=== PATIENT | female | born 1985 | race African-American/Black ===

== ENCOUNTER 2017-09-21 | Emergency (ER) | payer SELFPAY ==
--- NOTE | 2017-09-21 12:37 | ER Document Report ---
ED General - General Chief Complaint: Rash Stated Complaint: POSSIBLE RASH Time Seen by Provider: 09/21/17 12:30 Mode of Arrival: Ambulatory Information source: Patient Notes: Patient reports 2 days of a burning sensation in the right lateral chest and her right breast. She has noticed a rash as well. She has had some headache and flulike symptoms as well. Symptoms been constant and moderate. It is worse if touched and better if left alone. The pain does radiate from her back across the right lateral part of her chest. No vomiting or diarrhea. TRAVEL OUTSIDE OF THE [place] IN LAST 30 DAYS: No - Related Data Allergies/Adverse Reactions: No Known Allergies Allergy (Verified 09/21/17 11:14) Past Medical History - General Information source: Patient - Social History Smoking Status: Current Some Day Smoker Chew tobacco use (# tins/day): No Frequency of alcohol use: None Drug Abuse: None Family History: Reviewed & Not Pertinent Patient has suicidal ideation: No Patient has homicidal ideation: No Renal/ Medical History: Denies: Hx Peritoneal Dialysis - Immunizations Hx Diphtheria, Pertussis, Tetanus Vaccination: No Review of Systems - Review of Systems Constitutional: Malaise. denies: Chills, Fever Cardiovascular: Chest pain. denies: Palpitations Respiratory: denies: Cough, Short of breath Physical Exam - Vital signs Vitals: Temp Pulse Resp BP Pulse Ox 98.5 F 90 18 118/69 99 09/21/17 11:33 09/21/17 11:33 09/21/17 11:33 09/21/17 11:33 09/21/17 11:33 Interpretation: Normal - General General appearance: Appears well, Alert - HEENT Head: Normocephalic, Atraumatic Eyes: Normal Pupils: PERRL - Respiratory Respiratory status: No respiratory distress Chest status: Nontender Breath sounds: Normal Chest palpation: Normal - Cardiovascular Rhythm: Regular Heart sounds: Normal auscultation Murmur: No - Abdominal Inspection: Normal Distension: No distension Bowel sounds: Normal Tenderness: Nontender Organomegaly: No organomegaly - Back Back: Normal, Nontender - Extremities General upper extremity: Normal inspection, Nontender, Normal color, Normal ROM , Normal temperature General lower extremity: Normal inspection, Nontender, Normal color, Normal ROM , Normal temperature, Normal weight bearing. No: Sonja's sign - Neurological Neuro grossly intact: Yes Cognition: Normal Orientation: AAOx4 [place] Coma Scale Eye Opening: Spontaneous [place] Coma Scale Verbal: Oriented [place] Coma Scale Motor: Obeys Commands [place] Coma Scale Total: 15 Speech: Normal Motor strength normal: LUE, RUE, LLE, RLE Sensory: Normal - Psychological Associated symptoms: Normal affect, Normal mood - Skin Skin Temperature: Warm Skin Moisture: Dry Skin Color: Other - Patient has a tender erythematous vesicular rash in a dermatomal distribution. Is approximately an dermatome for on the right side. It spreads from her back to the lateral part of her breast. The vesicles are coalesced. Rashes consistent with herpes zoster. Course - Vital Signs Vital signs: Temp Pulse Resp BP Pulse Ox 98.5 F 90 18 118/69 99 09/21/17 11:33 09/21/17 11:33 09/21/17 11:33 09/21/17 11:33 09/21/17 11:33 Discharge - Discharge Clinical Impression: Herpes zoster Qualifiers: Herpes zoster complications: without complications Qualified Code(s): B02.9 - Zoster without complications Condition: Stable Disposition: HOME, SELF-CARE Instructions: Shingles ([facility]) Prescriptions: Famciclovir [Famvir] 500 mg PO TID 7 Days #21 tablet Hydrocodone/Acetaminophen [[place] 5-325 mg Tablet] 1 - 2 tab PO Q6 PRN 6 Days # 18 tab PRN Reason: Forms: Return to Work
== END 2017-09-21 13:03 | disposition home or self-care (01) ==
CPT/HCPCS: 99282

== ENCOUNTER 2018-03-05 07:36 | Emergency (ER) | payer SELFPAY ==
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
[2018-03-05] MEDS ORDERED: LIDOCAINE 1% INJ-PF (10 MG/ML) 30 ML SDV INFIL ONE (08:09)
[2018-03-05] MEDS ORDERED: AZITHROMYCIN 250 MG TABLET PO ONE (08:09)
[2018-03-05] MEDS ORDERED: CEFTRIAXONE INJ 250 MG VIAL IM ONE (08:09)
[2018-03-05 08:24] LABS: APPEARANCE,URINE SLIGHTLY-CLOUDY; BILIRUBIN,URINE NEGATIVE (NEGATIVE); GLUCOSE, URINE NEGATIVE (NEGATIVE); KETONES,URINE TRACE mg/dL (NEGATIVE); LEUKOCYTE ESTERASE,URINE LARGE (NEGATIVE); NITRITE,URINE NEGATIVE (NEGATIVE); PROTEIN,URINE 30 mg/dL (NEGATIVE); URINE SPECIFIC GRAVITY 1.032
[2018-03-05 08:26] LABS: COLOR,URINE YELLOW
[2018-03-05 08:46] LABS: BACTERIA (WET MOUNT) 3+ BACTERIA SEEN; T.VAGINALIS (WET MOUNT) TRICHOMONAS SEEN; WBCS (WET MOUNT) 3+ WBCS SEEN; YEAST (WET MOUNT) NO YEAST SEEN
[2018-03-05 09:00] VITALS: BP 114/71
[2018-03-05 09:47] LABS: CHLAM PCR NOT DETECTED (NOT DETECT); GON PCR NOT DETECTED (NOT DETECT)
== END 2018-03-05 09:15 | disposition home or self-care (01) ==
LOC: ER 07:36
DX: N76.0 Acute vaginitis (principal); B96.89 Other specified bacterial agents as the cause of diseases classified elsewhere; A59.01 Trichomonal vulvovaginitis; R10.2 Pelvic and perineal pain
CPT/HCPCS: 99284; 96372; 87086; 87210; 81025; 81001; 87491; 87591; J3490; J0696

== ENCOUNTER → 2018-09-07 | Outpatient (CLI) | payer MEDICAID ==
--- NOTE | 2018-09-07 15:04 | RADIOLOGY REPORT (SQ) ---
EXAM DESCRIPTION: U/S [id number] TRNABD 1GES W/ODOP COMPLETED DATE/TIME: 09/07/2018 2:45 pm REASON FOR STUDY: Z34.81 ENCOUNTER FOR SUPRVSN OF NORMAL , FIRST TRIMESTER Z34.81 ENCOUNTE R FOR SUPRVSN OF NORMAL , FIRST TRIM COMPARISON: None. TECHNIQUE: Transabdominal static and realtime grayscale images acquired of the pelvis. Additional se lected spectral and color Doppler images recorded. All images stored on PACs. CG: Not available. CLINICAL DATES: CATHERINE: 04/10/2019. EGA: 9 weeks 2 days. LIMITATIONS: None. FINDINGS: FETUS: Single Living intrauterine . ULTRASOUND EGA: 8 weeks 6 days ULTRASOUND CATHERINE: 04/13/2019 EFW: Not applicable less than 20 weeks. CRL: 2.15 cm FHR: 165 beats per minute. SURVEY: No visualized anomalies. AMNIOTIC FLUID: Adequate amount. PLACENTA: Not yet developed due to early gestation. SUBCHORIONIC BLEED: Adjacent to the gestational sac, a hypoechoic fluid collection measures 4.2 x 1. 6 x 1.2 cm. SIZE OF BLEED: See above. UTERUS: No masses. No anomalies. CERVICAL LENGTH: 2.8 cm Closed. RIGHT ADNEXA: Not visualized sonographically. LEFT ADNEXA: The left ovary measures 5.0 x 3.9 x 3.6 cm. A left ovarian cyst measures 3.7 x 3.2 x 3 .7 cm and may represent a corpus luteum cyst of . Normal normal vascular flow. FREE FLUID: None. OTHER: No other significant finding. IMPRESSION: LIVING INTRAUTERINE . EGA: 8 weeks 6 days. Subchorionic bleed see above discussion. Trimester of : First - 0 to 13 weeks. TECHNICAL DOCUMENTATION: JOB ID: [id number] [employer]- All Rights Reserved rev Reading location - IP/workstation name: [email or web address]
== END ==
LOC: RAD 14:06
PROVIDERS: ATTEND Midwife
DX: Z34.81 Encounter for supervision of other normal pregnancy, first trimester (principal)
CPT/HCPCS: 76801

== ENCOUNTER 2019-03-28 10:42 | Outpatient (CLI) | payer MEDICAID | END 2019-03-28 11:21 | disposition home or self-care (01) | LOC: LC 10:42 | PROVIDERS: ATTEND Student in an Organized Health Care Education/Training Program | PROC: 4A1HXCZ Monitoring of Products of Conception, Cardiac Rate, External Approach (ICD-10-PCS; principal; 2019-03-28) | DX: O47.1 False labor at or after 37 completed weeks of gestation (principal); O09.523 Supervision of elderly multigravida, third trimester; Z3A.38 38 weeks gestation of pregnancy | CPT/HCPCS: 59025 ==

== ENCOUNTER 2019-04-07 10:53 | Outpatient (CLI) | payer MEDICAID ==
--- NOTE | 2019-04-07 12:02 | Non Stress Test Report ---
Non Stress Test Datetime Report Generated by CPN: 04/07/2019 12:02 DEMOGRAPHIC Test Number: 2 EGA NST: 39.4 INDICATION Indication for Study: Ordered by Provider Indication for Study: Other - Please document "Reason for NST Other" in box below. Indication for Study (NST) Other: questionable decels in office Indication for Study (NST) Other: AMA MONITORING Monitor Explained: Monitor Explained; Test Explained; Patient Verbalized Understanding Monitor Explained: Monitor Explained; Test Explained; Patient Verbalized Understanding Time on Monitor: 04/07/2019 11:05 Time on Monitor: 03/28/2019 10:58 Time off Monitor: 04/07/2019 11:57 Time off Monitor: 03/28/2019 11:18 NST Duration: 52 NST Duration: 20 NST INTERVENTIONS NST Interventions: PO Hydration NST Interventions: None Physician Notified NST: J SANTANA, CNM Physician Notified NST: J Santana CNM BABY A: [id number] BABY A Movement : Present Movement : Absent Contraction Frequency : NONE Contraction Frequency : none FHR Baseline : 130 FHR Baseline : 135 Accelerations : 15X15 Accelerations : 15X15 Decelerations : None Decelerations : None Variability : Moderate 6-25bpm Variability : Moderate 6-25bpm NST Review: Meets Criteria for Reactive NST NST Review: Meets Criteria for Reactive NST NST Review and Verified By : FREDDY HARDEN RN NST Review and Verified By : Cezar Bae RN NST Results: Reactive NST Results: Reactive NST REPORT Report Trigger: Send Report
== END 2019-04-07 11:59 | disposition home or self-care (01) ==
LOC: LC 10:53
PROVIDERS: ATTEND Obstetrics & Gynecology Gynecology
PROC: 4A1HXCZ Monitoring of Products of Conception, Cardiac Rate, External Approach (ICD-10-PCS; principal; 2019-04-07)
DX: O09.523 Supervision of elderly multigravida, third trimester (principal); Z3A.39 39 weeks gestation of pregnancy

== ENCOUNTER 2019-04-11 11:07 | Outpatient (CLI) | payer MEDICAID ==
--- NOTE | 2019-04-11 13:32 | Non Stress Test Report ---
Non Stress Test Datetime Report Generated by CPN: 04/11/2019 13:31 DEMOGRAPHIC EGA NST: 40.1 INDICATION Indication for Study: Ordered by Provider; Other - Please document "Reason for NST Other" in box below. Indication for Study (NST) Other: AMA VITAL SIGNS Temperature - NST: 98.2 Pulse - NST: 115 RESP - NST: 16 NBPSYS NST: 107 NBPDIA NST: 59 MONITORING Monitor Explained: Monitor Explained; Test Explained; Patient Verbalized Understanding Time on Monitor: 04/11/2019 11:44 Time off Monitor: 04/11/2019 13:05 NST Duration: 81 NST INTERVENTIONS NST Interventions: PO Hydration; Reposition Patient Physician Notified NST: J. Peguero, CNM reviewed strip BABY A: [id number] BABY A Movement : Present Contraction Frequency : rare FHR Baseline : 140 Accelerations : 15X15 Decelerations : None Variability : Moderate 6-25bpm NST Review: Meets Criteria for Reactive NST NST Review and Verified By : BL EBONIEND, RN NST Results: Reactive NST REPORT Report Trigger: Send Report
== END 2019-04-11 13:08 | disposition home or self-care (01) ==
LOC: LC 11:07
PROVIDERS: ATTEND Obstetrics & Gynecology
PROC: 4A1HXCZ Monitoring of Products of Conception, Cardiac Rate, External Approach (ICD-10-PCS; principal; 2019-04-11)
DX: O09.523 Supervision of elderly multigravida, third trimester (principal); O48.0 Post-term pregnancy; Z3A.40 40 weeks gestation of pregnancy
CPT/HCPCS: 59025

== ENCOUNTER 2019-04-12 04:37 | Outpatient (CLI) | payer MEDICAID ==
[2019-04-12 05:05] LABS: APPEARANCE,URINE CLOUDY; BILIRUBIN,URINE NEGATIVE (NEGATIVE); COLOR,URINE YELLOW; GLUCOSE, URINE NEGATIVE (NEGATIVE); KETONES,URINE NEGATIVE (NEGATIVE); LEUKOCYTE ESTERASE,URINE LARGE (NEGATIVE); NITRITE,URINE NEGATIVE (NEGATIVE); PROTEIN,URINE NEGATIVE (NEGATIVE); UROBILINOGEN,URINE NEGATIVE mg/dL (<2.0)
[2019-04-12 06:13] LABS: URINE AMPHETAMINES SCREEN NEGATIVE; URINE BARBITURATES SCREEN NEGATIVE; URINE BENZODIAZEPINES SCREEN NEGATIVE; URINE COCAINE SCREEN NEGATIVE; URINE MARIJUANA (THC) SCREEN NEGATIVE; URINE METHADONE SCREEN NEGATIVE; URINE PHENCYCLIDINE SCREEN NEGATIVE
== END 2019-04-12 06:00 | disposition home or self-care (01) ==
LOC: LC 04:37
PROVIDERS: ATTEND Obstetrics & Gynecology
PROC: 4A1HXCZ Monitoring of Products of Conception, Cardiac Rate, External Approach (ICD-10-PCS; principal; 2019-04-12)
DX: O36.8130 Decreased fetal movements, third trimester, not applicable or unspecified (principal); O09.523 Supervision of elderly multigravida, third trimester; O48.0 Post-term pregnancy; Z3A.40 40 weeks gestation of pregnancy
CPT/HCPCS: 59025; 80307; 81005

== ENCOUNTER 2019-04-15 11:57 | Outpatient (CLI) | payer MEDICAID ==
--- NOTE | 2019-04-15 12:04 | Non Stress Test Report ---
Non Stress Test Datetime Report Generated by CPN: 04/15/2019 12:04 DEMOGRAPHIC EGA NST: 40.2 INDICATION Indication for Study: Decreased Movement MONITORING Monitor Explained: Monitor Explained; Test Explained; Patient Verbalized Understanding Time on Monitor: 04/12/2019 04:33 Time off Monitor: 04/12/2019 05:52 NST Duration: 79 NST INTERVENTIONS NST Interventions: PO Hydration Physician Notified NST: Dr. Younger BABY A: [id number] BABY A Movement : Present Contraction Frequency : Irritability FHR Baseline : 140 Accelerations : 15X15 Decelerations : None Variability : Moderate 6-25bpm NST Review: Meets Criteria for Reactive NST NST Review and Verified By : Blossom Kaye RN NST Results: Reactive NST REPORT Report Trigger: Send Report
--- NOTE | 2019-04-15 13:30 | RADIOLOGY REPORT (SQ) ---
EXAM DESCRIPTION: U/S PROFILE W/O STRESS COMPLETED DATE/TIME: 04/15/2019 1:20 pm REASON FOR STUDY: BPP not reactive NST COMPARISON: None. TECHNIQUE: Limited powell-scale realtime and static images of the fetus to measure specified parameter s. LIMITATIONS: None. FINDINGS: HEART RATE: 150 beats per minute. LVP: 7.0 cm. BREATHING MOVEMENT: 2 points. MOVEMENT: 2 points. POSTURE AND TONE: 2 points. QUALITATIVE KATHYA: 2 points. OTHER: No other significant finding. IMPRESSION: BIOPHYSICAL PROFILE: 01/13. Trimester of : Third - 28 weeks to delivery COMMENT: BREATHING MOVEMENTS: 2 POINTS: PRESENT 0 POINTS: ABSENT MOTION: 2 POINTS: PRESENT 0 POINTS: ABSENT TONE: 2 POINTS: PRESENT 0 POINTS: ABSENT AMNIOTIC FLUID VOLUME: 2 POINTS: LARGEST POCKET GREATER THAN 2 CM DEPTH. 0 POINTS: NO POCKET OF 2 CM. TECHNICAL DOCUMENTATION: JOB ID: [id number] [employer]- All Rights Reserved Reading location - IP/workstation name: [email or web address]
--- NOTE | 2019-04-15 14:21 | Non Stress Test Report ---
Non Stress Test Datetime Report Generated by CPN: 04/15/2019 14:21 DEMOGRAPHIC EGA NST: 40.5 INDICATION Indication for Study: Other - Please document "Reason for NST Other" in box below. Indication for Study (NST) Other: AMA VITAL SIGNS Temperature - NST: 98.0 Pulse - NST: 93 RESP - NST: 16 NBPSYS NST: 112 NBPDIA NST: 65 MONITORING Monitor Explained: Monitor Explained; Test Explained; Patient Verbalized Understanding Time on Monitor: 04/15/2019 12:04 Time off Monitor: 04/15/2019 12:45 NST Duration: 41 NST INTERVENTIONS NST Interventions: PO Hydration; For Biophysical Profile Physician Notified NST: Dr. Granado and A. Devlin, CNM BABY A Movement : Present Contraction Frequency : 0 FHR Baseline : 155 Accelerations : 10X10 Decelerations : Variable Variability : Minimal - Undetectable to <=5bpm NST Review: Does Not Meet Criteria for Reactive NST NST Review: Does Not Meet Criteria for Reactive NST NST Review and Verified By : Nancy Payan RN NST Results: Non-Reactive NST REPORT Report Trigger: Send Report
== END 2019-04-15 14:05 | disposition home or self-care (01) ==
LOC: LC 11:57
PROVIDERS: ATTEND Obstetrics & Gynecology
DX: O36.8330 Maternal care for abnormalities of the fetal heart rate or rhythm, third trimester, not applicable or unspecified (principal); Z3A.40 40 weeks gestation of pregnancy
CPT/HCPCS: 59025; 76819

== ENCOUNTER 2019-04-16 14:43 | Inpatient (IN) | payer MEDICAID ==
[2019-04-16 15:35] LABS: APPEARANCE,URINE CLOUDY; BILIRUBIN,URINE NEGATIVE (NEGATIVE); COLOR,URINE AMBER; GLUCOSE, URINE NEGATIVE (NEGATIVE); KETONES,URINE NEGATIVE (NEGATIVE); LEUKOCYTE ESTERASE,URINE MODERATE (NEGATIVE); NITRITE,URINE NEGATIVE (NEGATIVE); PROTEIN,URINE 30 mg/dL (NEGATIVE); URINE SPECIFIC GRAVITY 1.023
[2019-04-16 16:01] LABS: URINE AMPHETAMINES SCREEN NEGATIVE; URINE BARBITURATES SCREEN NEGATIVE; URINE BENZODIAZEPINES SCREEN NEGATIVE; URINE COCAINE SCREEN NEGATIVE; URINE MARIJUANA (THC) SCREEN NEGATIVE; URINE METHADONE SCREEN NEGATIVE; URINE PHENCYCLIDINE SCREEN NEGATIVE
[2019-04-16] MEDS ORDERED: RINGERS SOLUTION,LACTATED 1,000 ML IV ONE (16:21)
[2019-04-16] MEDS ORDERED: RINGERS SOLUTION,LACTATED 1,000 ML IV PRN (16:21)
[2019-04-16] MEDS ORDERED: PENICILLIN G POTASSIUM 5,000,000 UNIT in DEXTROSE 5%-WATER 100 ML IV ONE (16:21)
[2019-04-16] MEDS ORDERED: PENICILLIN G-K 5 MILLION UNIT VIAL ONE ×2 (16:24→20:51)
[2019-04-16] MEDS ORDERED: OXYTOCIN/NORMAL SALINE 20 UNIT/1,000 ML RTUINJ ONE (16:37)
[2019-04-16] MEDS ORDERED: OXYTOCIN 10 UNIT/ML VIAL ONE (16:37)
[2019-04-16] MEDS ORDERED: LIDOCAINE 1% INJ-PF (10 MG/ML) 30 ML SDV ONE (16:37)
[2019-04-16] MEDS ORDERED: MISOPROSTOL 0.2 MG TABLET ONE (16:37)
[2019-04-16 16:56] LABS: ABSOLUTE EOSINOPHILS # (AUTO) 0.2 10^3/uL (0.0-0.6); ABSOLUTE LYMPHOCYTES (AUTO) 1.8 10^3/uL (0.5-4.7); ABSOLUTE NEUT (AUTO) 8.1 10^3/uL (1.7-8.2); BASOPHILS % (AUTO) 0.2 % (0-2); HEMATOCRIT 33.2 % (36.0-47.0); HEMOGLOBIN 11.1 g/dL (12.0-15.5); LYMPHOCYTES % (AUTO) 16.1 % (13-45); MEAN CORPUSCULAR HEMOGLOBIN 29.1 pg (27.0-33.4); MEAN CORPUSCULAR HGB CONC 33.3 g/dL (32.0-36.0); MEAN CORPUSCULAR VOLUME 87 fl (80-97); MONOCYTES % (AUTO) 8.8 % (3-13); PLATELET COUNT 364 10^3/uL (150-450); RED BLOOD COUNT 3.81 10^6/uL (3.72-5.28); RED CELL DISTRIBUTION WIDTH 13.9 % (11.5-14.0); SEGMENTED NEUTROPHILS % (AUTO) 72.9 % (42-78); TOTAL CELLS COUNTED % (AUTO) 100 %; WHITE BLOOD COUNT 11.1 10^3/uL (4.0-10.5)
--- NOTE | 2019-04-16 19:07 | Admission Physical ---
Datetime Report Generated by CPN: 04/16/2019 19:07 CURRENT ADMISSION Chief Complaint: Uterine Contractions; Suspected Ruptured Membranes Indication for Induction: Not Applicable Admit Impression : Term, Intrauterine ; No Active Labor; Ruptured Membranes Admit Plan: Admit to Unit; Initiate Labor Protocol; Initiate Labor Augmentation Protocol ALLERGIES Medication Allergies: Unknown Medication Allergies: No Known Allergies (04/16/2019) Latex: Latex Allergies Food Allergies: None Environmental Allergies: None OBSTETRICAL HISTORY EDC: 04/10/2019 00:00 : 3 Para: 2 Term: 2 : 0 SAB: 0 IAB: 0 Ectopic: 0 Livin Cesareans: 0 VBACs: 0 Multiple Births: 0 Gestational Diabetes: No Rh Sensitization: No Incompetent Cervix: No [place]: No Infertility: No ART Treatment: No Uterine Anomaly: No IUGR: No Hx Previous C/S: No Macrosomia: No Hx Loss/Stillborn: No PIH: No Hx : No Placenta Previa/Abruption: No Depression/PP Depression: No PTL/PROM: No Post Hemorrhage: No Current Procedures: Ultrasound; NST Obstetrical History Comments: G1- IOL at 40 weeks, 2007 G2- at 38 weeks, 2008 G3- current , AMA SEE RECORDS Alcohol: No Marijuana : No Cocaine: No Other Illicit Drugs: No Cigarettes: Former Smoker. 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 Surgery: No Heart Disease: No Hosp/Surgery: No Autoimmune Disorder: No Anesthetic Complications: No Kidney Disease: No Abnormal Pap Smear: No Neuro/Epilepsy: No Psychiatric Disorders: No Other Medical Diseases: No Hepatitis/Liver Disease: No Significant Family History: No Varicosities/Phlebitis: No Trauma/Violence : No Thyroid Dysfunction: No INFECTIOUS HISTORY Gonorrhea: No Genital Herpes: No Chlamydia: No Tuberculosis: No Syphilis: No Hepatitis: No HIV/AIDS Exposure: No Rash or Viral Illness: No HPV: No PHYSICAL EXAM General: Normal HEENT: Normal Neurologic: Normal Thyroid: Normal Heart: Normal Lungs: Normal Breast: Normal Back: Normal Abdomen: Normal Genitourinary Exam: Normal Extremities: Normal DTRs: Normal Pelvic Type: Adequate Vital Signs: Reviewed; Within Normal Limits VAGINAL EXAM Dilatation: 3 Effacement: 50 Station: -3 MEMBRANES Pooling: Positive Membranes: Ruptured Amniotic Fluid Color: Clear FETUS A EGA: 40.6 Monitoring: External US FHR- Baseline: 130 Variability: Moderate 6-25bpm Accelerations: 15X15 Decelerations: None FHR Category: Category I Estimated Weight (gm): 3500 Presentation: Vertex PLANS FOR LABOR AND DELIVERY Labor and Delivery: None Pain Management: Natural Feeding Preference: Breast Benefit of Breast Feed Discussed: Yes Circumcision: N/A INFORMED CONSENT Signature: with User ID: Nicolas
[2019-04-16] MEDS ORDERED: PENICILLIN G POTASSIUM 2,500,000 UNIT in DEXTROSE 5%-WATER 50 ML IV SCH (20:22)
[2019-04-16] MEDS ORDERED: FENTANYL/BUPIVACAINE/NS/PF 300 MCG/150 ML RTUINJ EPI ONE (20:23)
[2019-04-16] MEDS ORDERED: BUPIVACAINE HCL 0.25 % INJ/PF (2.5 MG/1 ML) 30 ML VIAL ONE (20:23)
[2019-04-16] MEDS ORDERED: EPHEDRINE SULFATE INJ 50 MG/1 ML AMPULE ONE (20:23)
[2019-04-16] MEDS ORDERED: IBUPROFEN 800 MG TABLET ONE (21:11)
[2019-04-16] MEDS ORDERED: ACETAMINOPHEN WITH CODEINE #3 TABLET ONE (21:11)
[2019-04-16] MEDS ORDERED: PROMETHAZINE HCL 25 MG TABLET PO PRN (21:12)
[2019-04-16] MEDS ORDERED: GLYCERIN/WITCH HAZEL LEAF 1 EACH MED..WIPE TP PRN (21:12)
[2019-04-16] MEDS ORDERED: MAGNESIUM HYDROXIDE SUSP 30 ML UDCUP PO PRN (21:12)
[2019-04-16] MEDS ORDERED: PSEUDOEPHEDRINE HCL 30 MG TABLET PO PRN (21:12)
[2019-04-16] MEDS ORDERED: DIPH/PERTUSS(ACELL)/TETANUS VAC/PF 0.5 ML SYR (>=10YO) IM PRN (21:12)
[2019-04-16] MEDS ORDERED: OXYTOCIN/NORMAL SALINE 20 UNIT/1,000 ML RTUINJ IV PRN (21:12)
[2019-04-16] MEDS ORDERED: ACETAMINOPHEN WITH CODEINE #3 TABLET PO PRN ×2 (21:12)
[2019-04-16] MEDS ORDERED: PROMETHAZINE HCL INJ 25 MG/1 ML VIAL IV PRN (21:12)
[2019-04-16] MEDS ORDERED: PROMETHAZINE HCL 25 MG SUPP.RECT PR PRN (21:12)
[2019-04-16] MEDS ORDERED: DIPHENHYDRAMINE HCL 25 MG CAPSULE PO PRN (21:12)
[2019-04-16] MEDS ORDERED: ZOLPIDEM TARTRATE 5 MG TABLET PO PRN (21:12)
[2019-04-16] MEDS ORDERED: MEASLES,MUMPS&RUBELLA VACC/PF 0.5 ML VIAL SUBCUT PRN (21:12)
[2019-04-16] MEDS ORDERED: NA PHOS,M-B/NA PHOS,DI-BA (ADULT) 133 ML ENEMA PR PRN (21:12)
[2019-04-16] MEDS ORDERED: DIBUCAINE 1% OINTMENT 56 GM TP PRN (21:12)
[2019-04-16] MEDS ORDERED: ACETAMINOPHEN 650 MG SUPP.RECT PR PRN (21:12)
[2019-04-16] MEDS ORDERED: BENZOCAINE/MENTHOL AEROSOL SPRAY 56 ML TOP PRN (21:12)
[2019-04-17 06:09] LABS: HEMATOCRIT 31.4 % (36.0-47.0); HEMOGLOBIN 10.3 g/dL (12.0-15.5); MEAN CORPUSCULAR HEMOGLOBIN 28.8 pg (27.0-33.4); MEAN CORPUSCULAR HGB CONC 32.7 g/dL (32.0-36.0); MEAN CORPUSCULAR VOLUME 88 fl (80-97); PLATELET COUNT 306 10^3/uL (150-450); RED BLOOD COUNT 3.56 10^6/uL (3.72-5.28); RED CELL DISTRIBUTION WIDTH 13.9 % (11.5-14.0); WHITE BLOOD COUNT 15.4 10^3/uL (4.0-10.5)
[2019-04-17] MEDS: IBUPROFEN 800 MG TABLET PO SCH ×4 (06:21→21:45)
[2019-04-17] MEDS: FAMOTIDINE 20 MG TABLET PO SCH ×3 (06:25→21:46)
[2019-04-17] MEDS: PRENATAL VITAMIN W DHA CAPSULE PO SCH (09:21)
[2019-04-17] MEDS: DOCUSATE SODIUM 100 MG CAPSULE PO SCH ×2 (09:21→17:26)
[2019-04-17] MEDS: SENNOSIDES/DOCUSATE 8.6-50 MG 1 EACH TABLET PO SCH (09:22)
[2019-04-17] MEDS: FERROUS SULFATE 325 MG TABLET PO SCH ×2 (09:22→17:26)
--- NOTE | 2019-04-17 11:05 | PDOC PROGRESS REPORT ---
Subjective-OB Progress Note for:: 04/17/19 - PP Day #1, doing well, no complaints, B+, rubella Immune, Physical Exam (OB) Vital Signs: Temp Pulse Resp BP Pulse Ox 97.6 F 93 18 123/71 99 04/16/19 23:13 04/16/19 23:13 04/16/19 23:13 04/16/19 23:13 04/16/19 23:13 Intake & Output 04/16/19 04/17/19 04/18/19 06:59 06:59 06:59 Intake Total 120 Balance 120 Weight 105.4 kg - General General Appearance: Appears well, Alert In distress: None - Lochia Lochia Amount: Small 10-25 ml Lochia Color: Rubra/Red - Abdomen Description: Soft Hernia Present: No Fundal Description: Firm, Midline Fundal Height: u/u - u/2 - Respiratory Respiratory Status: No respiratory distress - Abdominal Distension: No distension Tenderness: Other - very slightly tender - Genitourinary Genitourinary Note: voiding - Extremities Upper extremity: Normal inspection Lower extremities: Normal inspection - Neurological Cognition: Normal Orientation: AAOx4 - Psychological Associated symptoms: Normal affect, Normal mood - Skin Skin Temperature: Warm Skin Moisture: Dry Objective-Diagnostic Laboratory: 04/17/19 05:22 04/16/19 04/16/19 04/16/19 15:04 16:45 16:45 WBC 11.1 H RBC 3.81 Hgb 11.1 L Hct 33.2 L MCV 87 MCH 29.1 MCHC 33.3 RDW 13.9 Plt Count 364 Seg Neutrophils % 72.9 Urine Color FAISAL Urine Appearance CLOUDY Urine pH 6.0 Ur Specific [place] 1.023 Urine Protein 30 H Urine Glucose (UA) NEGATIVE Urine Ketones NEGATIVE Urine Blood LARGE H Urine Nitrite NEGATIVE Ur Leukocyte Esterase MODERATE H Blood Type B POSITIVE Antibody Screen NEGATIVE 04/17/19 05:22 WBC 15.4 H RBC 3.56 L Hgb 10.3 L Hct 31.4 L MCV 88 MCH 28.8 MCHC 32.7 RDW 13.9 Plt Count 306 Seg Neutrophils % Urine Color Urine Appearance Urine pH Ur Specific [place] Urine Protein Urine Glucose (UA) Urine Ketones Urine Blood Urine Nitrite Ur Leukocyte Esterase Blood Type Antibody Screen Assessment and Plan(PN) - Assessment and Plan (1) (normal spontaneous vaginal delivery) Is this a current diagnosis for this admission?: Yes (2) Group beta Strep positive Is this a current diagnosis for this admission?: Yes - Time Spent with Patient Time with patient: Less than 15 minutes Medications reviewed and adjusted accordingly: Yes - Disposition Anticipated Discharge: Home Within: within 24 hours
[2019-04-18] MEDS: IBUPROFEN 800 MG TABLET PO SCH ×2 (05:52→13:05)
[2019-04-18 08:09] VITALS: BP 109/73
[2019-04-18] MEDS: PRENATAL VITAMIN W DHA CAPSULE PO SCH (09:42)
[2019-04-18] MEDS: DOCUSATE SODIUM 100 MG CAPSULE PO SCH (09:42)
[2019-04-18] MEDS: SENNOSIDES/DOCUSATE 8.6-50 MG 1 EACH TABLET PO SCH (09:42)
[2019-04-18] MEDS: FERROUS SULFATE 325 MG TABLET PO SCH (09:42)
[2019-04-18] MEDS: FAMOTIDINE 20 MG TABLET PO SCH (09:42)
[2019-04-18] MEDS ORDERED: PROMETHAZINE HCL INJ 25 MG/1 ML VIAL IV PRN (10:00)
[2019-04-18] MEDS ORDERED: DIPH/PERTUSS(ACELL)/TETANUS VAC/PF 0.5 ML SYR (>=10YO) IM PRN (10:00)
[2019-04-18] MEDS ORDERED: MEASLES,MUMPS&RUBELLA VACC/PF 0.5 ML VIAL SUBCUT PRN (10:00)
--- NOTE | 2019-04-18 12:48 | PDOC DISCHARGE SUMMARY ---
Impression - Admit/DC Date/PCP Admission Date/Primary Care Provider: 04/16/19 16:21 LORE SANTIZO MD Discharge Date: 04/18/19 - Discharge Diagnosis (1) Group beta Strep positive Is this a current diagnosis for this admission?: Yes (2) (normal spontaneous vaginal delivery) Is this a current diagnosis for this admission?: Yes - Additional Information Discharge Diet: Regular Discharge Activity: Balance Activity w/Rest, Pelvic Rest Referrals: LORE SANTIZO MD [Primary Care Provider] - Prescriptions: Ibuprofen [Motrin 800 mg Tablet] 800 mg PO Q8HP PRN #60 tablet PRN Reason: Vits96/Iron Fum/Folic [ Tablet] 1 each PO DAILY #90 Home Medications: Ibuprofen [Motrin 800 mg Tablet] 800 mg PO Q8HP PRN #60 tablet 04/18/19 Vits96/Iron Fum/Folic [ Tablet] 1 each PO DAILY #90 04/18/19 HPI Gestational Age: 40+6 Reason(s) for Admission: Onset of Labor Procedures: NST Intrapartum Procedure(s): Spontaneous Vaginal Delivery Hospital Course Hospital Course: pitocin augmentation, Results Laboratory Results: WBC 15.4 10^3/uL (4.0-10.5) H 04/17/19 05:22 RBC 3.56 10^6/uL (3.72-5.28) L 04/17/19 05:22 Hgb 10.3 g/dL (12.0-15.5) L 04/17/19 05:22 Hct 31.4 % (36.0-47.0) L 04/17/19 05:22 MCV 88 fl (80-97) 04/17/19 05:22 MCH 28.8 pg (27.0-33.4) 04/17/19 05:22 MCHC 32.7 g/dL (32.0-36.0) 04/17/19 05:22 RDW 13.9 % (11.5-14.0) 04/17/19 05:22 Plt Count 306 10^3/uL (150-450) 04/17/19 05:22 Lymph % (Auto) 16.1 % (13-45) 04/16/19 16:45 [place] % (Auto) 8.8 % (3-13) 04/16/19 16:45 Eos % (Auto) 2.0 % (0-6) 04/16/19 16:45 Baso % (Auto) 0.2 % (0-2) 04/16/19 16:45 Absolute Neuts (auto) 8.1 10^3/uL (1.7-8.2) 04/16/19 16:45 Absolute Lymphs (auto) 1.8 10^3/uL (0.5-4.7) 04/16/19 16:45 Absolute Monos (auto) 1.0 10^3/uL (0.1-1.4) 04/16/19 16:45 Absolute Eos (auto) 0.2 10^3/uL (0.0-0.6) 04/16/19 16:45 Absolute Basos (auto) 0.0 10^3/uL (0.0-0.2) 04/16/19 16:45 Seg Neutrophils % 72.9 % (42-78) 04/16/19 16:45 Urine Color FAISAL 04/16/19 15:04 Urine Appearance CLOUDY 04/16/19 15:04 Urine pH 6.0 (5.0-9.0) 04/16/19 15:04 Ur Specific [place] 1.023 04/16/19 15:04 Urine Protein 30 mg/dL (NEGATIVE) H 04/16/19 15:04 Urine Glucose (UA) NEGATIVE mg/dL (NEGATIVE) 04/16/19 15:04 Urine Ketones NEGATIVE mg/dL (NEGATIVE) 04/16/19 15:04 Urine Blood LARGE (NEGATIVE) H 04/16/19 15:04 Urine Nitrite NEGATIVE (NEGATIVE) 04/16/19 15:04 Urine Bilirubin NEGATIVE (NEGATIVE) 04/16/19 15:04 Urine Urobilinogen 2.0 mg/dL (<2.0) H 04/16/19 15:04 Ur Leukocyte Esterase MODERATE (NEGATIVE) H 04/16/19 15:04 Urine Ascorbic Acid 20 (NEGATIVE) H 04/16/19 15:04 Membranes Rupture POSITIVE (NEGATIVE) H 04/16/19 15:57 Urine Opiates Screen NEGATIVE 04/16/19 15:04 Urine Methadone Screen NEGATIVE 04/16/19 15:04 Ur Barbiturates Screen NEGATIVE 04/16/19 15:04 Ur Phencyclidine Scrn NEGATIVE 04/16/19 15:04 Ur Amphetamines Screen NEGATIVE 04/16/19 15:04 U Benzodiazepines Scrn NEGATIVE 04/16/19 15:04 Urine Cocaine Screen NEGATIVE 04/16/19 15:04 U Marijuana (THC) Screen NEGATIVE 04/16/19 15:04 RPR NONREACTIVE (NONREACTIVE) 04/16/19 16:45 Blood Type B POSITIVE 04/16/19 16:45 Antibody Screen NEGATIVE 04/16/19 16:45 Plan Plan of Treatment: f/u at [facility] in 4 weeks for PP check
--- NOTE | 2019-04-19 11:52 | Delivery Summary ---
Del Sum A-C Datetime Report Generated by CPN: 04/19/2019 11:51 DELIVERY PERSONNEL DELIVERY PERSONNEL: [id number] Delivery Doctor:: Urszula Bae MD Labor and Delivery Nurse:: Shawanda Salinas RN Labor and Delivery Nurse:: Destinee Garland RN Nursery Nurse:: Radha Dupree RN Associate Director Of Biostatistics/NEGOTIATOR SALES: Mariela Hanson, ST MATERNAL INFORMATION Delivery Anesthesia: Epidural Medications After Delivery: Pitocin Drip 20 Units/1000ml NSS Estimated Blood Loss (ml): 150 Delivery QBL: 50 Maternal Complications: None LABOR SUMMARY EDC: 04/10/2019 00:00 No. Babies in Womb: 1 Attempted: No Labor Anesthesia: Epidural LABOR INFORMATION Reason for Induction: Not Applicable Onset of Labor: 04/16/2019 20:20 Complete Dilatation: 04/16/2019 20:57 Oxytocin: N/A Group B Beta Strep: Positive Antibiotics # of Doses: 2 Antibiotics Time of Last Dose: 2054 Name of Antibiotic Given: PCN Steroids Given: None Reason Steroids Not Administered: Not Applicable MEMBRANES Membranes Rupture Method: Spontaneous Rupture of Membranes: 04/16/2019 05:45 Length of Rupture (hr): 15.30 Amniotic Fluid Color: Clear Amniotic Fluid Amount: Small Amniotic Fluid Odor: Normal STAGES OF LABOR Stage 1 hr: 0 Stage 1 min: 37 Stage 2 hr: 0 Stage 2 min: 6 Stage 3 hr: 0 Stage 3 min: 2 Total Time in Labor hr: 0 Total Time in Labor min: 45 VAGINAL DELIVERY Episiotomy: None Laceration #1: None Laceration Repair: Not Applicable Sponge Count Correct: N/A CSECTION DELIVERY Primary Indication: N/A Secondary Indication: N/A CSection Incidence: N/A Labor: N/A Elective: N/A CSection Incision: N/A Uterine Closure: N/A BABY A INFORMATION Infant Delivery Date/Time: 04/16/2019 21:03 Method of Delivery: Vaginal Born in Route : No : N/A Forceps: N/A Vacuum Extraction: N/A Shoulder Dystocia : No PRESENTATION/POSITION BABY A Presentation: Cephalic Cephalic Presentation: Vertex Vertex Position: Right Occipital Anterior Breech Presentation: N/A PLACENTA INFORMATION BABY A Placenta Delivery Time : 04/16/2019 21:05 Placenta Method of Delivery: Spontaneous Placenta Method of Delivery: Spontaneous Placenta Status: Delivered SCORES BABY A Heart Rate 1 min: >100 bpm Resp Effort 1 min: Slow, Irregular Reflex Irritability 1 min: Cough or Sneeze or Pulls Away Muscle Tone 1 min: Flaccid Color 1 min: Blue/Pale Resuscitation Effort 1 min: Tactile Stimulation; Oxygen SCORE 1 MIN: 5 Heart Rate 5 min: >100 bpm Resp Effort 5 min: Good Cry Reflex Irritability 5 min: Cough or Sneeze or Pulls Away Muscle Tone 5 min: Active Motion Color 5 min: Body [place], Extremities Blue Resuscitation Effort 5 min: N/A SCORE 5 MIN: 9 INFANT INFORMATION BABY A Gestational Age at Delivery: 40.6 Gestational Status: Full Term- 39- 40.6 Weeks Outcome : Liveborn Condition : Stable Sex: Female IDENTIFICATION BABY A Infant Verification Date/Time: 04/16/2019 21:22 ID Band Number: [id number] Mother's Name Verified: Yes RN Verifying Infant: Alberta SalinasAraceli WILEY Additional Verifying Personnel: So Subramanian RN WEIGHT/LENGTH BABY A Infant Birthweight (gm): 3450 Weight (lb): 7 Infant Weight (oz): 10 Length (in): 19.50 Infant Length (cm): 49.53 CORD INFORMATION BABY A No. Cord Vessels: 3 Nuchal Cord : Around Neck x2, Tight Cord Blood Taken: Yes-For Storage (Mom's Blood type +) Suction: Mouth; Nose ASSESSMENT BABY A Skin to Skin: Yes BABY B INFORMATION : N/A SIGNATURES Signature: with User ID: Nicolas
== END 2019-04-18 13:25 | disposition home or self-care (01) | DRG 807 ==
LOC: LC 14:43 → LR 16:21 → 2S 04-17
PROVIDERS: ADMIT Obstetrics & Gynecology; ATTEND Obstetrics & Gynecology
PROC: 10E0XZZ Delivery of Products of Conception, External Approach (ICD-10-PCS; principal; 2019-04-16)
DX: O99.824 Streptococcus B carrier state complicating childbirth (principal); Z37.0 Single live birth; O69.1XX0 Labor and delivery complicated by cord around neck, with compression, not applicable or unspecified; Z91.040 Latex allergy status; Z87.891 Personal history of nicotine dependence; Z3A.40 40 weeks gestation of pregnancy
CPT/HCPCS: 36415; 59025; 80307; 81005; 84112; 85025; 85027; 86592; 86850; 86900; 86901; J2540; J2590; J3010; J3490

== ENCOUNTER 2020-04-21 09:11 | Emergency (ER) | payer SELFPAY ==
[2020-04-21] MEDS ORDERED: CLINDAMYCIN 600 MG/D5W RTU 600 MG/50 ML RTUPB IV ONE (11:33)
[2020-04-21] MEDS ORDERED: ONDANSETRON HCL INJ/PF 4 MG/2 ML SDV IV ONE (11:34)
[2020-04-21] MEDS ORDERED: HYDROMORPHONE HCL INJ/PF 2 MG/ML AMPULE IV ONE (11:34)
--- NOTE | 2020-04-21 11:35 | ER Document Report ---
ED General - General Chief Complaint: Abscess Stated Complaint: SKIN PROBLEM/ ARM Time Seen by Provider: 04/21/20 10:08 Notes: 35-year-old woman presenting to the emergency department with a complaint of a area of swelling and pain under the left arm. Symptoms began on Thursday approximately 1 week ago. She has had a history of hidradenitis, and recurrent areas involvement under the left arm. Denies fever, nausea vomiting, or other systemic symptoms. She is in severe pain. TRAVEL OUTSIDE OF THE [place] IN LAST 30 DAYS: No - Related Data Allergies/Adverse Reactions: No Known Allergies Allergy (Verified 04/16/19 14:55) Past Medical History - Social History Smoking Status: Never Smoker Family History: Reviewed & Not Pertinent Renal/ Medical History: Denies: Hx Peritoneal Dialysis - Immunizations Hx Diphtheria, Pertussis, Tetanus Vaccination: No Review of Systems - Review of Systems Notes: Constitutional: Negative for fever. HENT: Negative for sore throat. Eyes: Negative for visual changes. Cardiovascular: Negative for chest pain. Respiratory: Negative for shortness of breath. Gastrointestinal: Negative for abdominal pain, vomiting or diarrhea. Genitourinary: Negative for dysuria. Musculoskeletal: Negative for back pain. Skin: See HPI Neurological: Negative for headaches, weakness or numbness. 10 point ROS negative except as marked above and in HPI. -: Yes ROS unobtainable due to patient's medical condition - Constitutional: Negative for fever. HENT: Negative for sore throat. Eyes: Physical Exam - Vital signs Vitals: Temp Pulse Resp BP Pulse Ox 99.0 F 110 H 16 129/68 H 97 04/21/20 09:21 04/21/20 09:21 04/21/20 09:21 04/21/20 09:21 04/21/20 09:21 - Notes Notes: PHYSICAL EXAMINATION: Physical Exam: General: Well-nourished well-developed in no acute distress HEENT: NC/AT, pupils equal round and reactive to light, MM moist,nares clear, oropharynx clear, airway patent Neck: supple, no adenopathy, no masses. Good range of motion Lungs: clear, no wheezing, no rales no rhonchi CVS: Regular rate and rhythm no murmur gallop or rub Abdomen: Soft, active, nontender, no masses, no hepatosplenomegaly Ext: Left axilla with a area of swelling and marked tenderness and induration. Neuro: Alert and responsive, moving all 4 extremities on command, cranial nerves intact, no focal findings Skin: Intact no open lesions, no rash PSYCH: Normal mood, normal affect. Course - Re-evaluation Re-evalutation: 04/21/20 15:22 Patient with infection in the left axillary region, hidradenitis, markedly tender, will form incision and drainage procedure, patient is given clindamycin 600 mg IV in the emergency department. - Vital Signs Vital signs: Temp Pulse Resp BP Pulse Ox 99.4 F 111 H 15 130/88 H 100 04/21/20 14:59 04/21/20 14:59 04/21/20 14:59 04/21/20 14:59 04/21/20 14:59 Procedures - Incision and Drainage Left Arm Time completed: 14:35 Type: Simple Anesthetic type: 1% Lidocaine mL's of anesthetic: 8 Blade size: 11 I&D procedure: Betadine prep applied Incision Method: Incision made by scalpel Amount/type of drainage: 10 Notes: 04/21/20 15:26 The area was prepped and sterile drapes applied, lidocaine 1% infiltrated around the incision site. Ama was used to break adhesions large amount of pus was drained from the wound site quarter-inch packing material was used and a wound culture was obtained. Patient tolerated the procedure well. Sterile dressing applied and the patient will follow-up with the surgeon next week. Discharge - Discharge Clinical Impression: Abscess of axilla, left Condition: Good Disposition: HOME, SELF-CARE Instructions: Abscess ([facility]), Trimethoprim-Sulfa ([facility]) Additional Instructions: You were seen in the emergency department today with a abscess in the left axillary area. The area was drained and a packing material was placed. Please take the medications as prescribed clindamycin and Naprosyn. Please follow-up with the general surgeon on Thursday for a recheck of the area and removal of the packing materials. HOME CARE INSTRUCTIONS & INFORMATION: Thank you for choosing us for your medical needs. We hope you're satisfied with the care you received. After you leave, you must properly care for your problem and, at the same time, observe its progress. Any condition can change. Some illnesses can change rapidly over hours or days. If your condition worsens, return to the Emergency Department or see your physician promptly. ABOUT YOUR X-RAYS AND EKG'S: If you had an EKG or X-rays taken, they have been read by the Emergency Physician. The X-rays and EKG's will also be read by a Radiologist or Mortgage Or Loan Underwriter within 24 hours. If discrepancies are noted, you will be notified by telephone. Please be certain the ED has a correct telephone number & address where you can be reached. Also, realize that some fractures or abnormalities do not show up on initial X-rays. If your symptoms continue, see your physician. ABOUT YOUR LABORATORY TEST: If you had laboratory tests, the results have been reviewed by the Emergency Physician. Some test results (for example cultures) may not be available for several days. You will be contacted if any test result shows you need additional treatment. Please be certain the ED has a correct telephone number and address where you can be reached. ABOUT YOUR MEDICATIONS: You will receive instructions on how to take your medicine on the prescription label you receive. Additional information may be provided by the Pharmacy. If you have questions afterwards, call the ED for clarification or further instructions. Some prescribed medications may cause drowsiness. Do not perform tasks such as driving a car or operating machinery without consulting your Pharmacist. If you feel you need a refill of pain medication, your condition will need re-evaluation. Please do not call for a refill of any medication. ABOUT YOUR SIGNATURE: Signature of this document acknowledges to followin. Understanding that you received emergency treatment and that you may be released before al medical problems are known or treated. Please be certain the ED has a correct phone number & address where you can be reached. 2. Acknowledgement that you will arrange for follow-up care as recommended. 3. Authorization for the Emergency Physician to provide information to your follow-up Physician in order to maximize your care. AT ANY TIME, IF YOUR SYMPTOMS CHANGE SIGNIFICANTLY OR WORSEN OR YOU DEVELOP NEW SYMPTOMS, RETURN TO THE EMERGENCY DEPARTMENT IMMEDIATELY FOR RE-EVALUATION. OUR GOAL IS TO PROVIDE EXCELLENT MEDICAL CARE! WE HOPE THAT WE HAVE MET YOUR EXPECTATIONS DURING YOUR EMERGENCY DEPARTMENT VISIT AND THAT YOU FEEL YOU HAVE RECEIVED EXCELLENT CARE! Prescriptions: Clindamycin HCl 300 mg PO TID #30 capsule Ibuprofen [Motrin 800 mg Tablet] 800 mg PO Q8H PRN #30 tab PRN Reason: Referrals: FEDERICO ROY MD [ACTIVE STAFF] - Follow up as needed
[2020-04-21] MEDS ORDERED: LIDOCAINE 2% INJ (20 MG/ML) 20 ML MDV ONE (14:18)
[2020-04-21] MEDS ORDERED: HYDROCODONE/ACETAMINOPHEN 5-325 MG (6 TAB/ER DISP) PO PRN (15:57)
[2020-04-21 16:06] VITALS: BP 128/84
== END 2020-04-21 16:05 | disposition home or self-care (01) ==
LOC: ER 09:11
DX: L02.412 Cutaneous abscess of left axilla (principal); L73.2 Hidradenitis suppurativa
CPT/HCPCS: 99284; 96375; 96365; 10060; J3490; J1170; J2405